=== PATIENT | female | born 1955 | race Caucasian/White ===

== ENCOUNTER 2017-06-26 09:06 | Day surgery (SDC) | payer OTHER ==
[2017-06-26] MEDS ORDERED: D5 LR 1000 ML 1,000 ML IV ONE (09:10)
[2017-06-26] MEDS ORDERED: DIPRIVAN VIAL 20 ML ONE (10:12)
[2017-06-26 11:00] VITALS: BP 110/68
== END 2017-06-26 10:48 | disposition home or self-care (01) ==
LOC: SURG1 09:06
PROVIDERS: ATTEND Internal Medicine Gastroenterology
PROC: 0DB88ZX Excision of Small Intestine, Via Natural or Artificial Opening Endoscopic, Diagnostic (ICD-10-PCS; principal; 2017-06-26 20:30)
PROC: 0DJ08ZZ Inspection of Upper Intestinal Tract, Via Natural or Artificial Opening Endoscopic (ICD-10-PCS; principal; 2017-06-26 20:30)
PROC: 0D757ZZ Dilation of Esophagus, Via Natural or Artificial Opening (ICD-10-PCS; principal; 2017-06-26 20:30)
PROC: 0DB68ZX Excision of Stomach, Via Natural or Artificial Opening Endoscopic, Diagnostic (ICD-10-PCS; principal; 2017-06-26 20:30)
DX: R13.19 Other dysphagia (principal); R11.2 Nausea with vomiting, unspecified; R10.13 Epigastric pain; K21.9 Gastro-esophageal reflux disease without esophagitis; K44.9 Diaphragmatic hernia without obstruction or gangrene; K29.60 Other gastritis without bleeding; K31.7 Polyp of stomach and duodenum; K22.2 Esophageal obstruction
CPT/HCPCS: A4217; J3490; J7120